=== PATIENT | female | born 1975 | race American Indian/Alaskan Native ===

== ENCOUNTER 2019-07-20 18:34 | Emergency (ER) | payer OTHER ==
[2019-07-20 19:33] VITALS: BP 132/63
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
[2019-07-20] MEDS ORDERED: CYCLOBENZAPRINE 10 MG TAB PO ONE (21:33)
[2019-07-20] MEDS ORDERED: ACETAMINOPHEN W/CODEINE 300-30 MG TAB PO ONE (21:33)
[2019-07-20] MEDS ORDERED: dexAMETHasone 20 MG/5 ML VIAL IM ONE (21:33)
[2019-07-20] MEDS ORDERED: IBUPROFEN 800 MG TAB PO ONE (21:33)
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
== END 2019-07-20 22:50 | disposition home or self-care (01) ==
LOC: ED 18:34
DX: S16.1XXA Strain of muscle, fascia and tendon at neck level, initial encounter (principal); V49.49XA Driver injured in collision with other motor vehicles in traffic accident, initial encounter; Y93.89 Activity, other specified; Y92.488 Other paved roadways as the place of occurrence of the external cause; Y99.8 Other external cause status
CPT/HCPCS: 72040; 96372; 99283; J1100